=== PATIENT | female | born 1955 | race Caucasian/White ===

== ENCOUNTER 2024-06-11 13:21 | Emergency (ER) | payer MEDICARE, BC ==
[2024-06-11 13:38] VITALS: RESP 16
--- NOTE | 2024-06-11 14:26 | ED ---
Fall HPI - General Source: patient, RN notes reviewed Mode of arrival: ambulatory Limitations: no limitations - History of Present Illness MD Complaint: fall <Clover Lr - Last Filed: 06/11/24 14:24> - General Source: patient, RN notes reviewed, old records reviewed Mode of arrival: ambulatory Limitations: no limitations <Papo Child - Last Filed: 06/23/24 15:35> - General Chief Complaint: Fall Stated Complaint: Fall-R hand injury Time Seen by Provider: 06/11/24 14:20 - History of Present Illness Initial Comments: Quick Note: This is a 69-year-old female who presents to the emergency department for a right hand injury. Patient was walking out of her doctor's office when she tripped and fell, landing with most of the weight on her right hand. She has pain largely along the fourth and fifth finger and is having difficulty bending the fifth finger. (Clover Lr) This is a 69-year-old after a fall fall on her right hand with a right hand injury right pinky pain severe unable to move right fourth and fifth little finger (Papo Child) - Related Data Allergies Allergy/AdvReac Type Severity Reaction Status Date / Time No Known Allergies Allergy Verified 06/11/24 13:38 Review of Systems ROS Other: All systems not noted in ROS Statement are negative. <Clover Lr - Last Filed: 06/11/24 14:24> ROS Other: All systems not noted in ROS Statement are negative. <Papo Child - Last Filed: 06/23/24 15:35> ROS Statement: Those systems with pertinent positive or pertinent negative responses have been documented in the HPI. Past Medical History Past Medical History: No Reported History History of Any Multi-Drug Resistant Organisms: None Reported Past Surgical History: Orthopedic Surgery Past Psychological History: No Psychological Hx Reported Smoking Status: Never smoker Past Alcohol Use History: Rare Past Drug Use History: None Reported <Clover Lr - Last Filed: 06/11/24 14:24> General Exam Limitations: no limitations <Clover Lr - Last Filed: 06/11/24 14:24> General appearance: alert, in no apparent distress Head exam: Present: atraumatic, normocephalic, normal inspection Eye exam: Present: normal appearance, PERRL, EOMI. Absent: scleral icterus, conjunctival injection, periorbital swelling ENT exam: Present: normal exam, mucous membranes moist Neck exam: Present: normal inspection. Absent: tenderness, meningismus, lymphadenopathy Respiratory exam: Present: normal lung sounds bilaterally. Absent: respiratory distress, wheezes, rales, rhonchi, stridor Cardiovascular Exam: Present: regular rate, normal rhythm, normal heart sounds. Absent: systolic murmur, diastolic murmur, rubs, gallop, clicks GI/Abdominal exam: Present: soft, normal bowel sounds. Absent: distended, tenderness, guarding, rebound, rigid Extremities exam: Present: normal inspection, full ROM, normal capillary refill. Absent: tenderness, pedal edema, joint swelling, calf tenderness Back exam: Present: normal inspection Neurological exam: Present: alert, oriented X3, CN II-XII intact Psychiatric exam: Present: normal affect, normal mood Skin exam: Present: warm, dry, intact, normal color. Absent: rash <Papo Child - Last Filed: 06/23/24 15:35> - General Exam Comments Initial Comments: Visual Physical Exam Vital signs reviewed General: Well-appearing, nontoxic, no acute distress. Head: Normocephalic, atraumatic Eyes: PERRLA, EOMI ENT: Airway patent Chest: Nonlabored breathing Skin: No visual rash, normal skin tone Neuro: Alert and oriented 3 Musculoskeletal: No gross abnormalities (Vogley,Clover) Course <Papo Child - Last Filed: 06/23/24 15:35> Vital Signs 06/11/24 06/11/24 13:35 15:59 Temperature 97.8 F 98.6 F Pulse Rate 83 82 Respiratory 16 16 Rate Blood Pressure 189/98 179/101 O2 Sat by Pulse 98 97 Oximetry - Reevaluation(s) Reevaluation #1: Medical records reviewed (Papo Child) Reevaluation #2: Symptoms improved (Papo Child) Reevaluation #3: Patient informed of results and questions answered (Papo Child) Reevaluation #4: Was pt. sent in by a medical professional or institution (, PA, REGIONAL REHABILITATION DIRECTOR, urgent care, hospital, or retirement...) When possible be specific @ -no Did you speak to anyone other than the patient for history (EMS, parent, family, police, friend...)? What history was obtained from this source @ -no Did you review nursing and triage notes (agree or disagree)? Why? @ -agree Are old charts reviewed (outside hosp., previous admission, EMS record, old EKG, old radiological studies, urgent care reports/EKG's, retirement records)? Report findings @ -yes Differential Diagnosis (chest pain, altered mental status, abdominal pain women, abdominal pain men, vaginal bleeding, weakness, fever, dyspnea, syncope, headache, dizziness, GI bleed, back pain, seizure, CVA, palpatations, mental health, musculoskeletal)? @ -prior EKG interpreted by me (3pts min.). @ -no X-rays interpreted by me (1pt min.). @ -yes positive for little phalanx fracture CT interpreted by me (1pt min.). @ -no U/S interpreted by me (1pt. min.). @ -no What testing was considered but not performed or refused? (CT, X-rays, U/S, labs)? Why? @ -none What meds were considered but not given or refused? Why? @ -none Did you discuss the management of the patient with other professionals (professionals i.e. JARED Johnson, REGIONAL REHABILITATION DIRECTOR, lab, RT, psych nurse, social media specialist, benzene washer, teacher, chief school finance officer, case advocate)? Give summary @ -no Was smoking cessation discussed for >3mins.? @ -no Was critical care preformed (if so, how long)? @ -no Were there social determinants of health that impacted care today? How? (Homelessness, low income, unemployed, alcoholism, drug addiction, transportation, low edu. Level, literacy, decrease access to med. care, penitentiary, rehab)? @ -none Was there de-escalation of care discussed even if they declined (Discuss DNR or withdrawal of care, Hospice)? DNR status @ -no What co-morbidities impacted this encounter? (DM, HTN, Smoking, COPD, CAD, Cancer, CVA, ARF, Chemo, Hep., AIDS, mental health diagnosis, sleep apnea, morbid obesity)? @ -none Was patient admitted / discharged? Hospital course, mention meds given and route, prescriptions, significant lab abnormalities, going to OR and other pertinent info. @ -69 female with a fall, fall with resultant left little finger fracture, fractures placed in splint patient can be discharged home Discharge Undiagnosed new problem with uncertain prognosis? @ -no Drug Therapy requiring intensive monitoring for toxicity (Heparin, Nitro, Insulin, Cardizem)? @ -no Were any procedures done? @ -Splint placement Diagnosis/symptom? @ -Fall with left little finger fracture Acute, or Chronic, or Acute on Chronic? @ -Acute Uncomplicated (without systemic symptoms) or Complicated (systemic symptoms)? @ -Complicated Side effects of treatment? @ -no Exacerbation, Progression, or Severe Exacerbation? @ -exacerbation Poses a threat to life or bodily function? How? (Chest pain, [place], [place], pneumonia, PE, COPD, DKA, ARF, appy, cholecystitis, CVA, Diverticulitis, Homicidal, Suicidal, threat to staff... and all critical care pts) @ -no (Papo Child) Medical Decision Making <Clover Lr - Last Filed: 06/11/24 14:24> - Radiology Data Radiology results: report reviewed (X-ray hand is positive for little finger fracture), image reviewed <Papo Child - Last Filed: 06/23/24 15:35> - Medical Decision Making I performed the QuickNote portion of this chart. Signed Clover Lr PA-C. (Clover Lr) 69 female to the ER with small finger little finger phalanx fracture splinted patient can be discharged (Papo Child) Disposition <Clover Lr - Last Filed: 06/11/24 14:24> Is patient prescribed a controlled substance at d/c from ED?: No Time of Disposition: 15:40 <Papo Child - Last Filed: 06/23/24 15:35> Clinical Impression: Fall, Fracture of phalanx of left little finger Disposition: HOME SELF-CARE Condition: Good Instructions (If sedation given, give patient instructions): Finger Fracture (ED) Referrals: Nonstaff,Physician [Primary Care Provider] - 1-2 days
[2024-06-11 16:01] VITALS: BP 179/101; PULSE 82; TEMP 98.6
--- NOTE | 2024-06-11 16:43 | XR ---
EXAMINATION TYPE: XR hand complete RT DATE OF EXAM: 06/11/2024 COMPARISON: None HISTORY: Pain dated and fall TECHNIQUE: 3 view right hand FINDINGS: There is fracture of the proximal metaphyseal proximal phalanx fifth digit. Soft tissue swe lling appears to be present. No additional fractures evident. Joint spaces are preserved. IMPRESSION: 1. Transverse fracture proximal metaphyseal proximal phalanx fifth digit [facility], , 06/11/2024 4:40 PM
== END 2024-06-11 16:01 | disposition home or self-care (01) ==
LOC: EC 13:21
CPT/HCPCS: 99283